=== PATIENT | male | born 1985 | race Two or more races ===

== ENCOUNTER 2019-01-09 07:30 | Emergency (ER) | payer OTHER ==
[~2019-01-09] VITALS: Ht 162.6 cm; Wt 75.3 kg
[2019-01-09 07:37] VITALS: BP 128/72
--- NOTE | 2019-01-09 07:38 | NUR ---
CAME IN FOR RFA PAIN x 4 DAYS, DENIES INJURY OR TRAUMA, 12/03 PS, TO ER BED 11, HOOKED TO MONITOR, AOx4, NAD NOTED, AWAITING MD ROTH.
--- NOTE | 2019-01-09 09:09 | NUR ---
Patient discharged to home in stable condition. Written and verbal after care instructions given. Patient verbalizes understanding of instruction.
== END 2019-01-09 09:10 | disposition home or self-care (01) ==
LOC: ER 07:30
DX: M77.8 Other enthesopathies, not elsewhere classified (principal)
CPT/HCPCS: 73080-TC